=== PATIENT | female | born 1995 | race Caucasian/White ===

== ENCOUNTER 2017-11-21 23:51 | Emergency (ER) | payer SELFPAY ==
[~2017-11-21] VITALS: Ht 149.9 cm; Wt 91.0 kg
[2017-11-22] MEDS ORDERED: ACETAMINOPHEN 325MG TABLET PO ONE (00:30)
[2017-11-22 00:56] LABS: BASOPHILS % 0.2 % (0.0-2.0); EOSINOPHILS % 0.9 % (0.0-5.0); HEMATOCRIT. 35.2 % (36.0-48.0); HEMOGLOBIN. 11.6 g/dL (12.0-16.0); LYMPHOCYTES % 30.3 % (20.0-50.0); MEAN CORPUSCULAR HEMOGLOBIN 25.9 pg (28.0-32.0); MEAN CORPUSCULAR VOLUME 78.3 fL (81.0-99.0); MEAN PLATELET VOLUME 8.9 fl (7.4-10.4); MONOCYTES % 6.6 % (2.0-8.0); PLATELET 301 x1000/uL (130-400); RED BLOOD CELL COUNT 4.49 mill/uL (4.2-5.4); RED CELL DISTRIBUTION WIDTH 15.4 % (11.6-14.6)
[2017-11-22 00:59] LABS: *AMPHETAMINES SCREEN URINE NEGATIVE (NEGATIVE); *BARBITURATES SCREEN URINE NEGATIVE (NEGATIVE); *BENZODIAZEPINES SCREEN URINE NEGATIVE (NEGATIVE); *COCAINE SCREEN URINE NEGATIVE (NEGATIVE)
[2017-11-22 01:00] LABS: METHADONE URINE SCREEN NEGATIVE (NEGATIVE); OPIATES URINE SCREEN NEGATIVE (NEGATIVE); PHENCYCLIDINE URINE SCREEN NEGATIVE (NEGATIVE)
[2017-11-22 01:01] LABS: CANNABINOID URINE SCREEN PRESUMTIVE POSITIVE (NEGATIVE)
[2017-11-22 01:03] LABS: INR 1.1; PROTHROMBIN TIME 10.9 sec (9.4-11.6)
[2017-11-22 01:04] LABS: CHLORIDE 108 mEq/L (98-107)
[2017-11-22 01:08] LABS: ETHANOL BLOOD < 10 mg/dL
[2017-11-22 01:13] LABS: HCG SCREEN INDETERMINATE
[2017-11-22 05:07] VITALS: BP 138/75
== END 2017-11-22 05:10 | disposition home or self-care (01) ==
LOC: ER 23:51
DX: S09.90XA Unspecified injury of head, initial encounter (principal); S16.1XXA Strain of muscle, fascia and tendon at neck level, initial encounter; Y08.89XA Assault by other specified means, initial encounter; Y93.9 Activity, unspecified; Y92.9 Unspecified place or not applicable
CPT/HCPCS: 36415; 70450; 72125; 80053; 80305; 80307; 80329; 84703; 85025; 85610; 99285; G0482; Z7610